=== PATIENT | male | born 1980 | race Caucasian/White ===

== ENCOUNTER 2022-06-25 20:32 | Inpatient (IN) | payer OTHER, SELFPAY ==
[2022-06-25] VITALS (21 sets, daily range): BP systolic 123–154; BP diastolic 65–85; PULSE 112–119; RESP 15–33; TEMP 37.7; O2SAT 80–98
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
--- NOTE | 2022-06-25 20:57 | PC.NURSE ---
RN attempted IV access without success.
--- NOTE | 2022-06-25 21:56 | PC.NURSE ---
WAS ASKED TO TRY AND PLACE IV, UNABLE TO. SPOKE TO PROVIDER AND ASKED FOR CENTRAL LINE ASSISTANCE. PROVIDER RELUCTANT AT THIS TIME, ASKING FOR ONE MORE PERSON TO TRY
[2022-06-25 22:13] LABS: Influenza A QL RT-PCR Negative (Negative); Influenza B QL RT-PCR Negative (Negative); SARS-CoV-2 RNA PCR Negative
--- NOTE | 2022-06-25 22:27 | PC.NURSE ---
Senior Sharepoint Developer attempting IV access at this time.
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
[2022-06-25] MEDS: SODIUM CHLORIDE 0.9% IV 1,000 ML 999 ML IV CONT (22:55)
[2022-06-25] MEDS: ONDANSETRON INJ 4 MG/2 ML VIAL IV PUSH (22:56)
[2022-06-25] MEDS: MORPHINE SULFATE (*CRX) 4 MG/ML INJ IV PUSH (22:56)
[2022-06-25 23:40] LABS: Hematocrit 25.6 % (42.0-52.0); Hemoglobin 8.6 g/dL (14.0-18.0); Mean Corpuscular HGB Conc 33.6 g/dl (32-36); Mean Corpuscular Hemoglobin 29.9 pg (26-34); Mean Corpuscular Volume 88.9 fl (80-100); Mean Platelet Volume 10.2 fl (7.4-10.4); Platelet Count Result 323 k/mm3 (150-375); Red Blood Count 2.88 M/mm3 (4.6-6.20); Red Cell Distribution Width 16.1 % (11.5-14.5); White Blood Count 31.2 K/mm3 (4.5-10.0)
[2022-06-25 23:50] LABS: Alanine Aminotransferase 46 U/L (6-50); Albumin Level 2.5 g/dL (3.5-5.1); Alkaline Phosphatase 229 U/L (38-126); Anion Gap 10 mmol/L (8-16); Aspartate Amino Transferase 69 U/L (17-59); Blood Urea Nitrogen 23 mg/dL (9-20); Calcium 7.1 mg/dL (8.4-10.2); Carbon Dioxide 24 mmol/L (22-30); Chloride 106 mmol/L (98-107); Estimated CRCL calculation 83 ml/min; Estimated Glomerular Filt Rate > 60; Glucose 105 mg/dL (65-110); Lipase 127 U/L (23-300); Magnesium 2.1 mg/dL (1.6-2.3); Potassium 3.6 mmol/L (3.4-5.0); Sodium 140 mmol/L (137-145)
[2022-06-25 23:51] LABS: Lactic Acid Reflex 2.6 mmol/L (0.7-2.0)
[2022-06-25 23:53] LABS: Ethanol < 10 mg/dL (<10)
[2022-06-26] VITALS (114 sets, daily range): BP systolic 102–145; BP diastolic 56–88; PULSE 95–121; RESP 13–34; TEMP 36.5–38.5; O2SAT 92–100
[2022-06-26 00:08] LABS: Band Neutrophils Percent 14 % (0-6); Lymphocytes Absolute Manual 2.49 K/mm3 (1.1-4.5); Metamyelocytes Percent 3 %; Microcytosis 1+ (NORMAL); Monocytes Absolute Manual 0.62 K/mm3 (0.1-0.90); Monocytes Percent Manual 2 % (3-9); Neutrophils Absolute Manual 26.83 K/mm3 (1.3-6.7); Neutrophils Percent Manual 72 % (46-73); Nucleated Red Blood Cells 5 %; Plasma Cells 1; Platelet Estimate Adequate (Adequate); Total Cells Counted 100
[2022-06-26 00:09] LABS: Anisocytosis 1+ (NORMAL); Hypochromasia 2+ (NORMAL); Poikilocytosis 2+ (NORMAL); Spherocytes 1+ (NORMAL); Target Cells 2+ (NORMAL)
[2022-06-26 00:10] LABS: Acanthocytes 1+ (NORMAL); Atypical Lymphocytes Present; Burr Cells 1+ (NORMAL); Toxic Granulation Present (NORMAL)
[2022-06-26 00:14] LABS: Procalcitonin 0.9 ng/mL
--- NOTE | 2022-06-26 00:31 | PC.NURSE ---
RN discussed with ERP that we were unable to obtain blood cultures. States he would like abx to be started at this time.
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
[2022-06-26 02:03] LABS: Add Urine Microscopic? YES; Appearance Urine Slightly Cloudy (Clear); Bilirubin Urine 2+ (Negative); Blood Urine 3+ (Negative); Color Urine Brown (Yellow); Glucose Urine UA Negative (Negative); Ketones Urine 1+ mg/dL (Negative); Leukocyte Esterase Ur Negative LEU/UL (Negative); Nitrate Urine Negative (Negative); Protein Urine 2+ mg/dL (Negative); Specific Grav Ur 1.015 (1.001-1.035); pH Urine 5.5 (5.0-9.0)
[2022-06-26 02:10] LABS: Mucus Urine Rare /lpf; RBC Urine >75 /hpf (0-2); WBC Urine 16-20 /hpf
--- NOTE | 2022-06-26 02:10 | PC.NURSE ---
RN redressed posterior wound. Wound has copious amounts of serosangious drainage.
[2022-06-26 02:27] LABS: Amphetamine Screen Urine Negative (Negative); Barbiturate Screen Urine Negative (Negative); Benzodiazepines Screen Urine Negative (Negative); Cannabinoid Screen Urine Positive (Negative); Cocaine Screen Urine Negative (Negative); Methadone Screen Urine Negative (Negative); Opiate Screen Urine Positive (Negative); Phencyclidine Screen Urine Negative (Negative)
[2022-06-26 02:35] LABS: Reflex Lactic Acid Yes or No Add Lactic
[2022-06-26] MEDS: MORPHINE SULFATE (*CRX) 4 MG/ML INJ IV PUSH (02:54)
--- NOTE | 2022-06-26 03:00 | PC.NURSE ---
BINH and Lizzy PURCELL performed wound care to front open wound. Wet to dry dressing applied.
[2022-06-26 03:12] LABS: Estimated CRCL calculation 83 ml/min; Estimated Glomerular Filt Rate > 60; Lactic Acid 0.9 mmol/L (0.7-2.0)
--- NOTE | 2022-06-26 03:26 | PC.NURSE ---
No CT report; automation qa analyst called, will check status.
[2022-06-26 03:31] LABS: INR 1.2; Prothrombin Time 15.1 Seconds (11.1-14.7)
[2022-06-26 03:32] LABS: Partial Thromboplastin Time 37.4 SECONDS (22.3-36.8)
[2022-06-26 08:11] LABS: CRP 29.7 mg/dL (<1.0)
--- NOTE | 2022-06-26 10:03 | PC.NURSE ---
[facility] called and states they should have some discharges today and will hopefully have a bed for pt. at some point today.
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
[2022-06-26] MEDS: fentaNYL CITRATE INJ (*CRX) 100 MCG/2 ML VIAL 50 MCG IV PUSH (13:10)
--- NOTE | 2022-06-26 19:38 | PC.NURSE ---
Attempted to speak to [facility] about possible bed placement. told pt on wait list as no beds are available at this time
--- NOTE | 2022-06-26 19:40 | PC.NURSE ---
market research intern from [employer] [facility] asking that he be contacted if pt ask to leave. Gorge Prather [phone]
[2022-06-27] VITALS (95 sets, daily range): BP systolic 106–144; BP diastolic 56–129; PULSE 75–112; RESP 14–33; TEMP 36.7–38.1; O2SAT 95–100
[2022-06-27] MEDS: MORPHINE SULFATE (*CRX) 4 MG/ML INJ IV PUSH ×5 (00:28→22:55)
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
--- NOTE | 2022-06-27 01:29 | PC.NURSE ---
50mL drainage emptied from Left abdominal HERIBERTO drain.
[2022-06-27] MEDS: SODIUM CHLORIDE 0.9% IV 1,000 ML 150 ML IV CONT ×4 (02:11→20:38)
[2022-06-27 06:56] LABS: Hematocrit 25.3 % (42.0-52.0); Hemoglobin 8.3 g/dL (14.0-18.0); Mean Corpuscular HGB Conc 32.8 g/dl (32-36); Mean Corpuscular Hemoglobin 29.7 pg (26-34); Mean Corpuscular Volume 90.7 fl (80-100); Platelet Count Result 485 k/mm3 (150-375); Red Blood Count 2.79 M/mm3 (4.6-6.20); Red Cell Distribution Width 16.5 % (11.5-14.5); White Blood Count 34.9 K/mm3 (4.5-10.0)
[2022-06-27 07:06] LABS: Lymphocytes Absolute Manual 1.04 K/mm3 (1.1-4.5); Monocytes Absolute Manual 1.39 K/mm3 (0.1-0.90); Monocytes Percent Manual 4 % (3-9); Neutrophils Percent Manual 93 % (46-73); Nucleated Red Blood Cells 5 %; Platelet Estimate Adequate (Adequate); Total Cells Counted 100
[2022-06-27 07:07] LABS: Anisocytosis 2+ (NORMAL); Hypochromasia 2+ (NORMAL); Target Cells 2+ (NORMAL)
[2022-06-27 07:08] LABS: Ovalocytes 1+ (NORMAL)
[2022-06-27 07:21] LABS: Alanine Aminotransferase 39 U/L (6-50); Albumin Level 2.5 g/dL (3.5-5.1); Alkaline Phosphatase 216 U/L (38-126); Anion Gap 12 mmol/L (8-16); Aspartate Amino Transferase 52 U/L (17-59); Blood Urea Nitrogen 18 mg/dL (9-20); Calcium 7.3 mg/dL (8.4-10.2); Carbon Dioxide 23 mmol/L (22-30); Chloride 104 mmol/L (98-107); Estimated CRCL calculation 91 ml/min; Estimated Glomerular Filt Rate > 60; Glucose 120 mg/dL (65-110); Potassium 3.6 mmol/L (3.4-5.0); Sodium 139 mmol/L (137-145)
--- NOTE | 2022-06-27 08:38 | PC.NURSE ---
Bed status check with [facility] - No beds available / possible later this evening
--- NOTE | 2022-06-27 10:22 | PC.NURSE ---
Received call from [facility], they will call when bed is available.
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
--- NOTE | 2022-06-27 20:26 | PC.NURSE ---
Called [facility] Transfer desk to check on the bed status. There is no bed available. Patient is at the top of the list and flagged as high priority.
--- NOTE | 2022-06-27 22:05 | PC.NURSE ---
Pt had urine output of 425 at this time. Urinal emptied and returned to bedside.
--- NOTE | 2022-06-27 23:14 | PC.NURSE ---
[facility] intake called for up date at this time, NS at 150ml continuos infusions, updated v/s, and pain meds at this time.
[2022-06-28] VITALS (42 sets, daily range): BP systolic 108–135; BP diastolic 62–81; PULSE 97–114; RESP 14–27; TEMP 36.8–37.7; O2SAT 92–100; BMI 31.7
--- NOTE | 2022-06-28 02:14 | PC.NURSE ---
Addendum entered by Adenike Hinds RN 06/28/22 02:40: Addition: Urine output at this time 275. Urine dwayne color at this time. Original Note: Wound change to right lower back at this time. Serosanginous/patricio colored discharge from wound at this time.
--- NOTE | 2022-06-28 02:16 | PC.NURSE ---
Pharmacy called and notified of concern for kidney function and vancomycin. Conferred with pharmacist and will wait for vanc trough result before given lemus dose of 1750 in 500 at this time.
[2022-06-28] MEDS: SODIUM CHLORIDE 0.9% IV 1,000 ML 75 ML IV CONT ×2 (02:30→07:21)
--- NOTE | 2022-06-28 02:46 | PC.NURSE ---
NS continuous infused titrated to 75ml/hr from 150ml per Dr. Razo. Pump programmed at bedside and continued bag that was hanging for 150ml/hr used for 75ml/hr.
[2022-06-28 02:47] LABS: Vancomycin Trough 10.5 ug/mL (10.0-20.0)
--- NOTE | 2022-06-28 03:05 | PC.NURSE ---
CAlled Saran, Pharmacist, reported vanc trough of 10.5, pharmacy via telephone confirmed vanc dosage of 1750mg/500ml to continue administration at this time.
[2022-06-28] MEDS: MORPHINE SULFATE (*CRX) 4 MG/ML INJ IV PUSH ×3 (06:47→16:36)
--- NOTE | 2022-06-28 07:24 | PC.NURSE ---
REport given to BINH Huang.
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
--- NOTE | 2022-06-28 10:19 | PC.NURSE ---
New wet to dry dressing applied to abd surgical site. Wound intact with pink tissue. No discharge noted to wound. Green discharge noted from jejunum drain. Bilateral HERIBERTO drains to flanks intact.
[2022-06-28] MEDS: ONDANSETRON INJ 4 MG/2 ML VIAL IV PUSH (10:58)
[2022-06-28] MEDS: NICOTINE (*PBKC) 21 MG PATCH 1 PATCH TRANSDERM (13:04)
[2022-06-28] MEDS: metroNIDAZOLE 500 MG/ISO 100ML 500 MG/100 ML BAG 100 MG IVPB (14:52)
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
--- NOTE | 2022-06-28 16:15 | PC.NURSE ---
report called to Silke PURCELL at [facility], reviewed plan of care and pt condition
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
== END 2022-06-28 18:16 | disposition short-term general hospital (02) | DRG 721 ==
LOC: ANHED 06-28 07:00 → ANH3MEDSUR 06-28 09:28
PROVIDERS: Emergency Medicine; Admitting Provider Family Medicine; Emergency Provider Emergency Medicine; Visit Provider Family Medicine
DX: T81.43XA Infection following a procedure, organ and space surgical site, initial encounter (principal); T81.44XA Sepsis following a procedure, initial encounter; K65.1 Peritoneal abscess; F17.210 Nicotine dependence, cigarettes, uncomplicated; Z20.822 Contact with and (suspected) exposure to COVID-19; S31.139D Puncture wound of abdominal wall without foreign body, unspecified quadrant without penetration into peritoneal cavity, subsequent encounter; W34.00XD Accidental discharge from unspecified firearms or gun, subsequent encounter
CPT/HCPCS: 36415; 71260; 74177; 80053; 80202; 80307; 81001; 82565; 83605; 83690; 83735; 84145; 85025; 85610; 85730; 86140; 87040; 87086; 87502; 96361; 96365; 96366; 96367; 96368; 96374; 96375; 96376; 99285; A9270; C9803; G0378; G0379; J0131; J2270; J2405; J2543; J3010; J3370; J7030; Q9967; U0003; U0005

== ENCOUNTER 2024-04-20 21:18 | Emergency (ER) | payer OTHER, SELFPAY ==
--- NOTE | ~2024-04-20 | CT_ITS ---
CT of the Abdomen and Pelvis: Indication: Bowel obstruction Technique: 2.5 mm axial scans were obtained through the abdomen and pelvis following intravenous adm inistration of 100 cc of Omnipaque 350. Dose reduction technique was used on this scan by utilizing a utomated exposure control and iterative reconstruction technique. The dose-length product (DLP) was 5 07.61 mGy-cm. COMPARISON: 06/25/2020 Findings: Scans through the lung bases are unremarkable. The liver, adrenals and kidneys are within normal limits. Gallbladder absent. Common bile duct and ma in pancreatic duct stents are present. Status post splenectomy and distal pancreatectomy. No evidence of aortic aneurysm. No lymphadenopathy. No bowel obstruction or bowel wall thickening. Small fat-containing umbilical hernia present. There a re postoperative or chronic posttraumatic changes at the left flank region at the posterior left abdo loretta wall.. Images through the pelvis were performed. Urinary bladder unremarkable. No pelvic mass seen. No ascit es. Impression: No acute abnormality evident. Common bile duct and main pancreatic duct stents. Status post prior cholecystectomy, splenectomy and distal pancreatectomy. Small fat-containing umbilical hernia. Reviewed, dictated and finalized at location . Impression: No acute abnormality evident. Common bile duct and main pancreatic duct stents. Status post prior cholecystectomy, splenectomy and distal pancreatectomy. Small fat-containing umbilical hernia.
[2024-04-20 21:19] VITALS: BP 126/71; PULSE 85; RESP 13; TEMP 36.4; O2SAT 96
[2024-04-20 21:43] LABS: Basophils Absolute Auto 0.1 K/mm3 (0.0-0.1); Basophils Percent Auto 0.8 % (0.2-1.2); Eosinophils Absolute Auto 0.4 K/mm3 (0-0.3); Eosinophils Percent Auto 3.9 % (0-4.4); Hematocrit 41.6 % (42.0-52.0); Hemoglobin 13.8 g/dL (14.0-18.0); Immature Granulocyte Absolute 0.02 K/mm3 (0.00-0.031); Immature Granulocyte Percent A 0.2 % (0-0.5); Lymphocytes Absolute Auto 4.15 K/mm3 (0.9-3.2); Lymphocytes Percent Auto 40.6 % (18.3-44.2); Mean Corpuscular HGB Conc 33.2 g/dl (32-36); Mean Corpuscular Hemoglobin 30.5 pg (26-34); Mean Corpuscular Volume 91.8 fl (80-100); Mean Platelet Volume 10.8 fl (7.4-10.4); Monocytes Absolute Auto 0.8 K/mm3 (0.1-0.6); Monocytes Percent Auto 7.8 % (2.6-8.5); Neutrophils Absolute Auto 4.8 K/mm3 (1.3-6.7); Neutrophils Percent Auto 46.7 % (45.5-73.1); Platelet Count Result 296 k/mm3 (150-375); Red Blood Count 4.53 M/mm3 (4.6-6.20); Red Cell Distribution Width 15.2 % (11.5-14.5); White Blood Count 10.2 K/mm3 (4.5-10.0)
[2024-04-20 22:52] LABS: Alanine Aminotransferase 18 U/L (6-50); Albumin Level 3.7 g/dL (3.5-5.1); Alkaline Phosphatase 79 U/L (38-126); Anion Gap 5 mmol/L (4-12); Aspartate Amino Transferase 22 U/L (17-59); Bilirubin,Total 0.5 mg/dL (0.2-1.3); Blood Urea Nitrogen 11 mg/dL (9-20); Calcium 8.3 mg/dL (8.4-10.2); Carbon Dioxide 25 mmol/L (22-30); Chloride 107 mmol/L (98-107); Estimated CRCL calculation 125 ml/min; Estimated Glomerular Filt Rate > 60; Glucose 106 mg/dL (65-110); Lipase 45 U/L (23-300); Potassium 3.3 mmol/L (3.4-5.0); Sodium 137 mmol/L (137-145)
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
--- NOTE | 2024-04-20 23:02 | PC.NURSE ---
Patient in CT at this time.
[2024-04-20 23:12] LABS: Appearance Urine Clear (Clear); Bilirubin Urine Negative (Negative); Blood Urine Negative (Negative); Color Urine Yellow (Yellow); Glucose Urine UA Negative (Negative); Ketones Urine Negative (Negative); Leukocyte Esterase Ur Negative LEU/UL (Negative); Nitrate Urine Negative (Negative); Protein Urine Negative (Negative); Specific Grav Ur 1.008 (1.001-1.035); pH Urine 6.5 (5.0-9.0)
[2024-04-20] MEDS: ONDANSETRON INJ 4 MG/2 ML VIAL IV PUSH (23:13)
[2024-04-20 23:24] LABS: Add Urine Microscopic? NO
[2024-04-21 01:28] VITALS: BP 110/55; PULSE 73; RESP 17; TEMP 36.8; O2SAT 97
--- NOTE | 2024-04-21 02:18 | PC.NURSE ---
upon discharge patient began to get verbally aggressive towards this rn. this rn attempted to explain discharge instructions to patient. pt stated, I don't give a fuck, youre just gonna say nothing is fucking wrong . this rn attempted to give give patient discharge instructions. pt threw discharge instructions on the floor. pt then ripped IV out and threw it on the floor. IV catheter intact upon removal. patient placed gauze on iv removal himself. pt then loudly used profanity into the waiting. pt stating, why the fuck was I brought here and not [place] like I fucking asked . this rn attempted to explain to patient that I had no control over where patient was brought. pt then started throwing things in the hallway. pt walked to the waiting. ed security notified.
== END 2024-04-21 02:18 | disposition home or self-care (01) ==
PROVIDERS: Emergency Medicine; Emergency Provider Physician Assistant
DX: K59.00 Constipation, unspecified (principal); F17.210 Nicotine dependence, cigarettes, uncomplicated
CPT/HCPCS: 36415; 74177; 80053; 81003; 83690; 85025; 96374; 99284; J2405; Q9967